=== PATIENT | female | born 1955 | race Caucasian/White ===

== ENCOUNTER 2017-01-19 19:03 | Inpatient (IN) | payer OTHER ==
[~2017-01-19] VITALS: Ht 172.7 cm; Wt 89.5 kg
[~2017-01-19 19:03] MED LIST: EFF75; GLU500 PO; NEU300; PROTONIX40 MG PO; REM15; TRA50; TRE400; ZES10 PO; ZOC20; ZOL100
[2017-01-19 20:30] LABS: BASOPHIL % 0.2 % (0-2); PLATELET COUNT 253 x10^3mcL (130-400); RED CELL DISTRIBUTION WIDTH 13.9 % (11.5-14.5)
[2017-01-19 20:42] LABS: ALKALINE PHOSPHATASE 149 U/L (46-116); ALT/SGPT 13 U/L (14-59); AST/SGOT 8 U/L (15-37); BILIRUBIN TOTAL 0.6 mg/dL (0.20-1.00); CALCIUM 8.9 mg/dL (8.5-10.1); CARBON DIOXIDE 22.1 mmol/L (21-32); CHLORIDE SERUM 94 mmol/L (98-107); CHOLESTEROL 161 mg/dL (<200); CREATININE SERUM 0.9 mg/dL (0.6-1.0); GFR1 > 60 mL/min; POTASSIUM SERUM 4.3 mmol/L (3.5-5.1); SODIUM SERUM 132 mmol/L (136-145); TOTAL PROTEIN, SERUM 7.2 g/dL (6.4-8.2)
[2017-01-19 20:44] LABS: ALBUMIN 2.8 g/dL (3.4-5.0)
[2017-01-19 20:45] LABS: GLUCOSE SERUM 464 mg/dL (74-106)
[2017-01-19] MEDS ORDERED: PROTONIX20 MG PO (21:20)
[2017-01-19] MEDS ORDERED: LOSARTAN POTASS50 M1 PO (21:20)
[2017-01-19] MEDS ORDERED: MIRTAZAPINE45 M1 PO (21:21)
[2017-01-19] MEDS ORDERED: SIMVASTATIN20 M1 PO (21:21)
[2017-01-19] MEDS ORDERED: SYNTHROID0.2 MG PO (21:21)
[2017-01-19] MEDS ORDERED: CLONAZEPAM1 MG PO (21:21)
[2017-01-19] MEDS ORDERED: LAMICTAL150 MG PO (21:22)
[2017-01-19] MEDS ORDERED: ZOLOFT100 MG PO (21:22)
[2017-01-19] MEDS ORDERED: EFFEXOR-XR150 MG PO (21:23)
[2017-01-19] MEDS ORDERED: TRAZODONE150 M1 PO (21:23)
[2017-01-19 22:27] LABS: CHOLESTEROL/HDL RATIO 4.2; MAGNESIUM 2.1 mg/dL (1.8-2.4); PHOSPHOROUS 3.9 mg/dL (2.5-4.9)
[2017-01-19 22:35] LABS: FREE T4 2.18 ng/dL (0.76-1.46); FREE THYROXINE INDEX 5.6 ug/dL (1.4-4.5)
[2017-01-19 22:38] VITALS: BP 160/68
[2017-01-19 22:38] LABS: T3 TOTAL 0.73 ng/mL
[2017-01-20 04:52] VITALS: BP 133/64
[2017-01-20 06:13] LABS: BASOPHIL % 0.2 % (0-2); PLATELET COUNT 229 x10^3mcL (130-400); RED CELL DISTRIBUTION WIDTH 14.2 % (11.5-14.5)
[2017-01-20 06:27] LABS: CALCIUM 8.7 mg/dL (8.5-10.1); CARBON DIOXIDE 22.7 mmol/L (21-32); PHOSPHOROUS 4.3 mg/dL (2.5-4.9); POTASSIUM SERUM 3.9 mmol/L (3.5-5.1)
[2017-01-20 07:23] LABS: UA SPECIFIC GRAVITY 1.015 (1.005-1.035); microscopic required? YES; urine erythrocyte 2+ (NEGATIVE)
[2017-01-20 07:41] LABS: AMPHETAMINE QUAL UR NONE DETECTED (NEG <=1000)
[2017-01-20 09:12] VITALS: BP 145/63
[2017-01-20 14:18] VITALS: BP 167/70
[2017-01-20 16:52] VITALS: BP 132/65
[2017-01-20 20:41] VITALS: BP 141/54
[2017-01-21 05:26] VITALS: BP 137/50
[2017-01-21 06:42] LABS: CALCIUM 8.5 mg/dL (8.5-10.1); CARBON DIOXIDE 25.3 mmol/L (21-32); CHLORIDE SERUM 109 mmol/L (98-107); CREATININE SERUM 0.7 mg/dL (0.6-1.0); GFR1 > 60 mL/min; GLUCOSE SERUM 241 mg/dL (74-106); POTASSIUM SERUM 3.9 mmol/L (3.5-5.1); SODIUM SERUM 143 mmol/L (136-145)
[2017-01-21 13:21] VITALS: BP 150/53
[2017-01-21 16:42] VITALS: BP 157/61
[2017-01-21 21:15] VITALS: BP 143/61
[2017-01-22 05:37] VITALS: BP 143/58
[2017-01-22 10:24] VITALS: BP 153/58
[2017-01-22 14:24] VITALS: BP 166/71
[2017-01-22 17:18] VITALS: BP 148/76
[2017-01-22 21:47] VITALS: BP 150/62
[2017-01-23 05:48] VITALS: BP 121/49
[2017-01-23 06:39] LABS: BASOPHIL % 0.1 % (0-2); CALCIUM 8.5 mg/dL (8.5-10.1); CARBON DIOXIDE 25.6 mmol/L (21-32); CHLORIDE SERUM 107 mmol/L (98-107); CREATININE SERUM 0.7 mg/dL (0.6-1.0); GFR1 > 60 mL/min; GLUCOSE SERUM 298 mg/dL (74-106); MAGNESIUM 1.6 mg/dL (1.8-2.4); PHOSPHOROUS 5.1 mg/dL (2.5-4.9); PLATELET COUNT 225 x10^3mcL (130-400); POTASSIUM SERUM 4.1 mmol/L (3.5-5.1); RED CELL DISTRIBUTION WIDTH 14.4 % (11.5-14.5); SODIUM SERUM 141 mmol/L (136-145)
[2017-01-23 09:39] VITALS: BP 130/61
[2017-01-23] MEDS ORDERED: GLIPIZIDE5 M2 PO (11:18)
[2017-01-23 13:03] VITALS: BP 130/61
== END 2017-01-23 13:52 | disposition home health service (06) | DRG 73 ==
LOC: ED 19:03 → DU 21:07 → EDBEDREQ 21:10 → MU 22:23 → DU 22:37
PROVIDERS: Family Medicine; Specialist; ADMIT Student in an Organized Health Care Education/Training Program
DX: G90.9 Disorder of the autonomic nervous system, unspecified (principal); E43 Unspecified severe protein-calorie malnutrition; N17.0 Acute kidney failure with tubular necrosis; N39.0 Urinary tract infection, site not specified; M47.12 Other spondylosis with myelopathy, cervical region; E87.1 Hypo-osmolality and hyponatremia; D68.69 Other thrombophilia; E11.65 Type 2 diabetes mellitus with hyperglycemia; I16.0 Hypertensive urgency; N31.8 Other neuromuscular dysfunction of bladder; E03.9 Hypothyroidism, unspecified; R31.9 Hematuria, unspecified; B37.3 Candidiasis of vulva and vagina; E78.1 Pure hyperglyceridemia; E66.9 Obesity, unspecified; Z99.3 Dependence on wheelchair; Z68.30 Body mass index [BMI] 30.0-30.9, adult
CPT/HCPCS: 82962; 83880; 84439; 87046; 87046-59; 90658; 97110-GP; 97116-GP; 97530-GP; A9577; G0480; J0696; J1815; J7030; Q0092

== ENCOUNTER 2017-07-03 11:48 | Emergency (ER) | payer OTHER ==
[~2017-07-03] VITALS: Ht 170.2 cm; Wt 106.1 kg
[~2017-07-03 11:48] MED LIST changes: +CLONAZEPAM1 MG PO; +EFFEXOR-XR150 MG PO; +GLIPIZIDE5 M2 PO; +LAMICTAL150 MG PO; +LOSARTAN POTASS50 M1 PO; +MIRTAZAPINE45 M1 PO; +PROTONIX20 MG PO; +SIMVASTATIN20 M1 PO; +SYNTHROID0.2 MG PO; +TRAZODONE150 M1 PO; +ZOLOFT100 MG PO
[2017-07-03 14:12] LABS: CALCIUM 8.6 mg/dL (8.5-10.1); CARBON DIOXIDE 27.9 mmol/L (21-32); POTASSIUM SERUM 4.7 mmol/L (3.5-5.1)
[2017-07-03 17:24] VITALS: BP 103/59
== END 2017-07-03 17:22 | disposition home or self-care (01) ==
LOC: ED 11:48
PROVIDERS: Emergency Medicine
DX: S82.831A Other fracture of upper and lower end of right fibula, initial encounter for closed fracture (principal); E11.9 Type 2 diabetes mellitus without complications; M79.7 Fibromyalgia; E78.00 Pure hypercholesterolemia, unspecified; X58.XXXA Exposure to other specified factors, initial encounter; Y93.89 Activity, other specified; Y92.89 Other specified places as the place of occurrence of the external cause; Y99.8 Other external cause status
CPT/HCPCS: J3010; J3490; J7030; Q0092; Q9967

== ENCOUNTER 2020-03-18 14:10 | Inpatient (IN) | payer OTHER, SELFPAY ==
[~2020-03-18] VITALS: Ht 171.4 cm; Wt 128.0 kg
[2020-03-18 14:22] VITALS: Ht 171.4 cm; Wt 128.0 kg
[2020-03-18 16:36] LABS: BASOPHIL % 0.1 % (0.2-1.3); PLATELET COUNT 265 x10^3mcL (179-408)
[2020-03-18 16:44] LABS: T3 TOTAL 0.52 ng/mL
[2020-03-18 17:36] LABS: BILIRUBIN TOTAL 0.2 mg/dL (0.20-1.00); C REACTIVE PROTEIN 0.5 mg/dL (<=0.9); CALCIUM 8.3 mg/dL (8.5-10.1); CARBON DIOXIDE 27.7 mmol/L (21-32); CREATININE SERUM 1.9 mg/dL (0.6-1.0)
[2020-03-18 17:43] LABS: ALBUMIN 2.6 g/dL (3.4-5.0)
[2020-03-18 17:45] LABS: POTASSIUM SERUM 5.6 mmol/L (3.5-5.1)
[2020-03-18 18:11] LABS: ERYTHROCYTE SED RATE 44 mm/hr (0-30)
[2020-03-18 18:12] LABS: CK-MB 3.5 ng/mL (0-3.6)
[2020-03-18 18:24] LABS: FREE T4 0.79 ng/dL (0.76-1.46)
--- NOTE | 2020-03-18 23:45 | NUR ---
ASSISTED PT TO LEFT SIDE FOR COMFORT. IV CA REMAINS INFUSING WITHOUT RESITANCE ON PUMP AT 100 MLS/HOUR.
--- NOTE | 2020-03-19 07:14 | NUR ---
REPORT GIVEN TO GISELE LIPSCOMB AND CARE GIVEN
--- NOTE | 2020-03-19 07:45 | NUR ---
IV TO LAC PULLED OUT AND CATHETER KINKED. REMOVED IV AND INSERTED NEW IV TO RIGHT HAND AND FLUSHES FREELY WITH 10CC SALINE. WILL CONTINUE TO MONITOR.
--- NOTE | 2020-03-19 07:45 | NUR ---
RECIEVED PT FROM NIGHT NURSE. PT IS LAYING DOWN IN BED WITH HOB UP RESTING. PT EASILY AROUSABLE. PT IS AOX4 AT THIS TIME. PT STATES ARRIVED TO ED FOR WORSENING SOB, PT SEEMS TO BE SOB AT THIS TIME AND IS WORSE WITH EXCERTION AND SPEAKING. PT ON 4L NC AND IS SATTING 96% AT THIS TIME. PT ABLE TO FOLLOW COMMANDS. PT HAS SCATTERED SCABS. PT DENIES ANY PAIN AT THIS TIME. PROVIDED PT WITH BREAKFAST TRAY. RESPIRATIONS SHALLOW. LUNG SOUNDS DIMINISHED. SIDE RAILS UPX2. WILL CONTINUE TO MONITOR.
--- NOTE | 2020-03-19 08:15 | NUR ---
PROVIDED PT WITH BREAKFAST TRAY. ASSISTED WITH TRAY SET UP. PT ABLE TO EAT WITHOUT ASSISTANCE. WILL CONTINUE TO DREAD,.
[2020-03-19] MEDS ORDERED: TRESIBA100 UNIT/1 SQ (09:16)
--- NOTE | 2020-03-19 09:17 | NUR ---
PT STATES URINATED IN DIAPER. CHANGED UP PT AND CHANGED DIAPER, PT BROUGHT PERSONAL DIAPERS. MADE PT COMFORTABLE IN BED. WILL CONTINUE TO MONITOPR.
--- NOTE | 2020-03-19 10:25 | NUR ---
PT URINATED IN DIAPER. CHANGED DIAPER, AND CLEANED UP PT, CHANGED SHEET. WILL CONTINUE TO MONITOR.
--- NOTE | 2020-03-19 10:35 | NUR ---
PT SIGNED CONSENT FOR THORACENTESIS. DR. MISHRA AND XRAY AT BEDSIDE.
--- NOTE | 2020-03-19 10:47 | NUR ---
TIME OUT PERFORMED FOR RIGHT SIDED THORACENTESIS.
--- NOTE | 2020-03-19 10:48 | NUR ---
PRE THORACENTESIS VITALS 167/64, MAP 98, HR: 92, O2: 99%, RR: 23. PT LOOKS TO BE IN NO ACUTE DISTRESS. PT STATES HAVING SOB AT THIS TIME. PT SEEMS TO HAVE SOB WITH TALKING. PT IN TRIPOD POSITION FOR PROCEDURE.
--- NOTE | 2020-03-19 10:50 | NUR ---
THROACENTESIS BEGUN. DR. MISHRA PERFORMING NEEDLE INSERTION. PT TOLERATING WELL. BP: 177/83, MAP: 114, HR: 90, O2: 99% ON 4L NC, RR: 17.
--- NOTE | 2020-03-19 10:59 | NUR ---
RIGHT SIDED THORACENTESIS COMPLETE, 1.6L OUT. NEEDLE REMOVED. PT STATES FEELING EASIER TO BREATH, PT ABLE TO TALK BETTER, PT LOOKS TO BE IN NO ACUTE DISTRESS AT THIS TIME. PT STATES SHARP PAIN IN RIGHT CHEST/ UPPER BACK WITH INSPIRATION. SIDE RAIL UP X2. MADE PT COMFORTABLE IN BED. WILL CONTINUE TO MONITOR.
[2020-03-19 11:07] LABS: BILIRUBIN TOTAL 0.2 mg/dL (0.20-1.00); CALCIUM 8.4 mg/dL (8.5-10.1); CARBON DIOXIDE 31.5 mmol/L (21-32); CREATININE SERUM 1.6 mg/dL (0.6-1.0); MAGNESIUM 2.4 mg/dL (1.8-2.4); POTASSIUM SERUM 4.8 mmol/L (3.5-5.1)
--- NOTE | 2020-03-19 11:10 | NUR ---
XRAY AT BEDSIDE.
[2020-03-19 11:14] LABS: ALBUMIN 2.4 g/dL (3.4-5.0); TOTAL PROTEIN, SERUM 5.8 g/dL (6.4-8.2)
[2020-03-19 11:15] LABS: BASOPHIL % 0.2 % (0.2-1.3); PLATELET COUNT 284 x10^3mcL (179-408)
[2020-03-19 11:21] LABS: RED CELL DISTRIBUTION WIDTH 17.1 % (12.3-17.7)
--- NOTE | 2020-03-19 12:13 | NUR ---
SPOKE WITH DR. CAIN ABOUT THORACENTESIS OF 1.6L OUT, PER DR. JOE, SEND FOR CELL COUNT, GRAMISE STAIN AND CULTURE AND FLUID TO PROTEIN AND LD EDGE AND FLUID GLUCOSE. INFORMED OF HOME MEDS AND HISTORY OF DIABETES, PER DR. JOE, WILL START ON SLIDING SCALE. WILL CARRY OUT ORDERED
--- NOTE | 2020-03-19 12:50 | NUR ---
PROVIDED PT WITH LUNCH TRAY. PT RESTING AT THIS TIME. ASSISTED WITH TRAY SET UP. WILL CONTINUE TO MONITOR.
--- NOTE | 2020-03-19 16:00 | NUR ---
PT STATES UNAWARE OF WHEN SHE NEEDS TO URINATE. EDUCATED PT ABOUT STRAIGHT CATH, PT AGREEABLE. PERFORMED STRAIGHT CATH, PT TOLERATED WELL, COLLECTED URINE AND SENT TO THE LAB. CHANGED DIAPER AND CLEANED UP PT. MADE PT COMFORTABLE IN BED. SIDE RAILS UP X2. CALL LIGHT WITHIN REACH. WILL CONTINUE TO MONITOR.
[2020-03-19 16:20] LABS: UA SPECIFIC GRAVITY >=1.030 (1.005-1.035); microscopic required? YES; urine erythrocyte 2+ (NEGATIVE)
--- NOTE | 2020-03-19 16:28 | NUR ---
ULTRASOUND AT BEDSIDE
--- NOTE | 2020-03-19 16:43 | NUR ---
CALLED AND GAVE REPORT TO DEISI FAGAN. ULTRASOUND IN PROGRESS AT THIS TIME. WHEN ULTRASOUND COMPLETE, WILL BRING PT TO TELE.
--- NOTE | 2020-03-19 17:17 | NUR ---
RECEIVED PT FROM ED VIA SASHA, CAME IN DUE TO INCREASING SOB. AAOX4. DENIES HEADACHE/DIZZINESS. ABLE TO FOLLOW COMMANDS. SOB NOTED ON EXERTION, LUNG SOUNDS DIMINISHED ON AUSCULTATION, O2 SAT=95% ON 4LPM/NC. NO COUGH NOTED. DENIES ABDOMINAL DISCOMFORT. ABDOMEN IS SOFT AND ROUNDED. LAST BM 03/18/20, SOFT. URINE INCONTINENT. W/ RIGHT GROIN ERYTHEMA, BUE AND BLE SCABS, AND BLANCHABLE ERYTHEMA ON SACRAL-COCCYGEAL AREA, KRANTHI. W/ BUE TRACE EDEMA ON BLE +2 EDEMA. WEAK PEDAL PULSES. URINE INCONTINENT. IV SITE ON THE LEFT HAND GAUGE 20 IS PATENT AND INTACT. SIDE RAILS UPX2. CALL LIGHT ON REACH. HOB ELEVATED AT 45 DEG. RZ=[id number], REPEAT VX=[phone]/79. ENDORSED TO PRIMARY NURSE LILLY FOR CONTINUITY OF CARE
--- NOTE | 2020-03-19 17:30 | NUR ---
PT VS ASSESSED. BP: 170/79. SECOND CHECK 176/79. PT ASYMPTOMATIC. DR. DEAN PAGED FOR HTN MEDS. AWAITING CALL BACK.
[2020-03-19 17:45] VITALS: BP 176/79
--- NOTE | 2020-03-19 18:51 | NUR ---
BP: 194/83 (139). PT ASYMPTOMATIC. PRN HYRDRALIZINE PO ADMINISTERED. BED IN LOWEST POSITION AND CALL LIGHT WITHIN REACH. WILL ENDORSE TO ONCOMING NURSE.
[2020-03-19 19:38] LABS: SOURCE FLUID THORACENTESIS
--- NOTE | 2020-03-19 20:29 | NUR ---
RECEIVED PT IN BED NO RESP DISTRESS NOTED , LUNG SOUNDS DM ON 4L N/C SAT 97% . TELE 58 SHOWS NSR , BILAT LOWER EXTR NOTED WITH 2+ EDEMA , SL TO LH PATENT FLUSHING WELL , CALL LIGHT WITHIN PT'S REACH WILL CON'T TO MONITOR AND ASSIST PT WITH CARE .
[2020-03-19 21:38] VITALS: BP 151/62
[2020-03-20 00:30] LABS: APPEARANCE FLUID CLEAR; COLOR FLUID PALE YELLOW; LYMPHOCYTE FLUID 70 %; MONOCYTE FLUID 10 %; RBC FLUID 39 /cumm; SOURCE FLUID THORACENTESIS; WBC FLUID 24 /cumm
[2020-03-20 06:24] VITALS: BP 152/65
--- NOTE | 2020-03-20 06:56 | NUR ---
NO CHANGES OF CONDITION NOTED, SCHEDULE MEDS GIVEN NO REACTION NOTED, RAMÍREZ TO GRAVITY DRAINING WELL , TELE NSR .
[2020-03-20 07:16] LABS: BASOPHIL % 0.2 % (0.2-1.3); PLATELET COUNT 272 x10^3mcL (179-408)
--- NOTE | 2020-03-20 07:30 | NUR ---
RECEIVED PATIENT IN BED AWAKE ALERT AND ORIENTED. TELE 58 NSR. RESP EVEN AND UNLABORED, LUNGS DIMINIDHED, ON O2 AT 4L VIA N/C, SAT 96%. PATIENT HAS A PRODUCTIVE COUGH. BANDAID ON RT SIDE OF BACK FROM THORACENTESIS YESTERDAY C/D/I. 1+ EDEMA NOTED BLE, TRACE EDEMA BUE. RAMÍREZ CATH DRAINING YELLOR URINE. WILL CONTINUE TO MONITOR.
[2020-03-20 07:37] LABS: RED CELL DISTRIBUTION WIDTH 17.3 % (12.3-17.7)
[2020-03-20 07:59] LABS: BILIRUBIN TOTAL 0.33 mg/dL (0.20-1.00); CALCIUM 8.7 mg/dL (8.5-10.1); MAGNESIUM 2.3 mg/dL (1.8-2.4); POTASSIUM SERUM 4.6 mmol/L (3.5-5.1)
[2020-03-20 08:05] LABS: ALBUMIN 2.1 g/dL (3.4-5.0); TOTAL PROTEIN, SERUM 5.5 g/dL (6.4-8.2)
[2020-03-20 08:15] VITALS: BP 152/67
[2020-03-20 08:35] LABS: CREATININE SERUM 1.4 mg/dL (0.6-1.0)
[2020-03-20 12:13] VITALS: BP 140/65
[2020-03-20 16:38] VITALS: BP 135/60
--- NOTE | 2020-03-20 17:27 | NUR ---
PATIENT'S PLAN OF CARE WAS DISCUSSED AND REVIEWED WITH BIOMETRIC FINGERPRINTING TECHNICIAN:TYLER HERNADEZ. I HAVE REVIEWED THE DATA COLLECTION BY BIOMETRIC FINGERPRINTING TECHNICIAN (NAME):TYLER HERNADEZ ENTERED ON (DATE/TIME):03/20/20 I CONCUR WITH THE DATA AND ANY EXCEPTIONS OR COMMENTS ARE LISTED BELOW:
--- NOTE | 2020-03-20 18:11 | NUR ---
PATIENT REMAINS IN BED SITTING UP, AWAKE AND ALERT. RAMÍREZ CATH DRAINING WELL. O2 REMAINS ON AT 4L VIA N/C. RESP REMAIN EVEN AND UNLABORED, LUNGS DIMINISHED. PRODUCTIVE COUGH STILL NOTED. PER PATIENT HER SCATTERED SCABS ON BUE AND BLE ARE FROM HER CAT. Alex HERNADEZ APPLIED TO ALEX AND GROIN AREA. DENIES ANY PAIN OR DISCOMFORT. WILL CONTINUE TO MONTIOR.
--- NOTE | 2020-03-20 20:05 | NUR ---
N BED NO RESP DISTRESS NOTED ON 4L N/C SAT 98% . TELE NSR , HL INTACT FLUSHING WELL , RAMÍREZ O GRAVITY DRAINING WELL CLEAR YELLOW URINE . TELE NSR . .
[2020-03-20 22:07] VITALS: BP 106/63
--- NOTE | 2020-03-21 05:01 | NUR ---
IN BED AWAKE NO RESP DISTRESS NOTED , HL INTACT , TELE NSR , RAMÍREZ TO GRAVITY DRAINING WELL .
--- NOTE | 2020-03-21 07:03 | NUR ---
RAMÍREZ TO GRAVITY DRAINING WELL , TELE NSR . HL PATENT . PT IN BED AWAKE NO DISTRESS.
[2020-03-21 08:46] VITALS: BP 130/61; BP 161/83
[2020-03-21 08:54] LABS: BILIRUBIN TOTAL 0.2 mg/dL (0.20-1.00); CALCIUM 8.1 mg/dL (8.5-10.1); CARBON DIOXIDE 30.5 mmol/L (21-32); CREATININE SERUM 1.6 mg/dL (0.6-1.0); MAGNESIUM 2.1 mg/dL (1.8-2.4); POTASSIUM SERUM 4.3 mmol/L (3.5-5.1)
[2020-03-21 08:55] LABS: ALBUMIN 1.8 g/dL (3.4-5.0); TOTAL PROTEIN, SERUM 4.9 g/dL (6.4-8.2)
--- NOTE | 2020-03-21 10:54 | NUR ---
PATIENT IS 65 YEAR OLD FEMALE THAT WAS ADMITTED TO [facility] FOR WORENING SOB FOR ONE WEEK. PATIENT HAD A LARGE PLEURAL EFFUSION THIS PROMPTED A US GUIDED THORACENTISIS 1.6L OUT 03/19. LABS THIS AM THEN PENDING DC ORDER AT THIS TIME. PATIENT ALERT AND ORIENTED X4 ABLE TO VERBALIZE NEEDS. TELE 58 NSR. GENERALIZED WEAKNESS-PT HERE TO EVALUATE PATIENT TODAY.
[2020-03-21 12:11] LABS: BASOPHIL % 0.6 % (0.2-1.3); PLATELET COUNT 240 x10^3mcL (179-408)
[2020-03-21 12:16] LABS: RED CELL DISTRIBUTION WIDTH 17.6 % (12.3-17.7)
[2020-03-21 16:17] VITALS: BP 149/59
--- NOTE | 2020-03-21 19:40 | NUR ---
RECEIVED REPORT FROM AM NURSE. PT IS A&OX4. PT IS ON TELE #58, NSR. PT HAS NON PITTING EDEMA IN BUE AND BLE. PT IS ON 4L O2 VIA NC, SPO2 07%. BREATHS ARE EVEN AND UNLABORED. PT HAS A RAMÍREZ CATHETER. PT IS IN NO ACUTE DISTRESS AT THE MOMENT. PT DENIES CHEST PAIN, DENIES N/V/D, DENIES SOB. PT DOES NOT HAVE C/O PAIN OR DISCOMFORT AT THE MOMENT. PT HAS AN IV IN HER LEFT HAND, IV IS CLEAN, DRY AND INTACT. NO SIGNS OF INFILTRATION OR INFECTION NOTED. CALL LIGHT IS WITHIN REACH. SIDE RAILS UP X2. WILL CONTINUE TO MONITOR.
[2020-03-21 21:08] VITALS: BP 153/80
--- NOTE | 2020-03-22 03:50 | NUR ---
PT IS RESTING WITH EYES CLOSED BUT IS EASILY AROUSABLE. PT IS NOT IN ACUTE DISTRESS AT THE MOMENT. CALL LIGHT IS WITHIN REACH. SIDE RAILS UP X2. WILL CONTINUE TO MONITOR.
--- NOTE | 2020-03-22 05:43 | NUR ---
PT IS RESTING IN BED. PT IS NOT IN ACUTE DISTRESS AT THIS TIME. PT DENIES SOB. BREATHS ARE EVEN AND UNLABORED. WILL ENDORSE CARE TO AM NURSE.
[2020-03-22 06:41] VITALS: BP 151/74
[2020-03-22 08:42] VITALS: BP 170/71
[2020-03-22 08:46] LABS: BILIRUBIN TOTAL 0.2 mg/dL (0.20-1.00); CALCIUM 8.4 mg/dL (8.5-10.1); CREATININE SERUM 1.5 mg/dL (0.6-1.0); MAGNESIUM 2.3 mg/dL (1.8-2.4); POTASSIUM SERUM 4.6 mmol/L (3.5-5.1)
[2020-03-22 08:48] LABS: ALBUMIN 1.8 g/dL (3.4-5.0); TOTAL PROTEIN, SERUM 5.2 g/dL (6.4-8.2)
[2020-03-22 09:17] LABS: BASOPHIL % 0.3 % (0.2-1.3); PLATELET COUNT 217 x10^3mcL (179-408)
[2020-03-22 09:21] LABS: RED CELL DISTRIBUTION WIDTH 16.8 % (12.3-17.7)
--- NOTE | 2020-03-22 11:08 | NUR ---
PATIENT IS 65 YEAR OLD FEMALE THAT WAS ADMITTED TO [facility] FOR WORENING SOB FOR ONE WEEK. PATIENT HAD A LARGE PLEURAL EFFUSION THIS PROMPTED A US GUIDED THORACENTISIS 1.6L OUT 03/19. PATIENT ALERT AND ORIENTED X4 ABLE TO VERBALIZE NEEDS. TELE 58 NSR. GENERALIZED WEAKNESS- PT TO SEE PATIENT TODAY. PATIENT ON KLONOPIN FOR ANXIETY PRN REQUESTING IT THIS AM, GIVEN ON MEDICATION ROUNDS, PATIENT VERBALIZING SHE WANTS TO LEAVE OR TALK TO THE DOCTOR. PENDING ROUNDS AT THIS TIME.
--- NOTE | 2020-03-22 15:25 | NUR ---
PATIENT VERY UPSET AND CRYING DUE TO HER NOT LEAVING TODAY, SHE WILL REQUIRE O2 AT HOME, RT EVALUATED AND WILL SET UP 02 3LNC AT HOME, O2 EVAL WAS 85% ON RA. ORDER FOR RAMÍREZ REMOVAL, WILL BE REMOVED PRIOR TO END OF SHIFT.
--- NOTE | 2020-03-22 16:31 | NUR ---
PATIENT HAVING A PANIC ATTACK AT SI TIME, AFTER EVAL FOR HOME O2, THINKING SHE STILL HAS FLUID, WHICH HAS BEEN REMOVED PREVIOUSLY, KLONOPIN WAS GIVEN AT 0800 PER HER REQUEST, NO MORE ANXIETY PRNS TO GIVE, PAGED DR PACHECO TO GET ANOTHER ORDER. PENDING CALL BACK AT THIS TIME.
--- NOTE | 2020-03-22 16:43 | NUR ---
CALLED DR PACHECO ONE TIME KLONOPIN 1MG NOW WILL BE GIVEN FOR PANIC ATTACK, HE IS AWARE OF HOME O2 REQUIREMENT.
--- NOTE | 2020-03-22 19:32 | NUR ---
Pt. received from day shift for continuity of care. Pt. is a/o x4, able to amke needs known, tele 58, SR, noted to have weak pedal pulssea, BUE trace edema, BLE +2. Pt. on 4L NC, breathing e/u at this time. Pt. had r thoracentesis 1.6 out on 03/19. Pt. madison removed, has voided since as per day shift. Pt. noted to get anxious during day shift, will ask for medication and cont. to monitor. Pt. noted to have scabs on BUE/BLE, erythema on R roun and sacral, will apply z guard as needed. PT IV access on LH 20g, patent and dressing CdI, otherwise, pt. moderately stable, will cont. to monitor.
[2020-03-22 21:47] VITALS: BP 161/60
[2020-03-23 06:35] VITALS: BP 154/55
--- NOTE | 2020-03-23 06:45 | NUR ---
Pt. noted to be resting throughout shift, no acute distress noted at this time. Pt. did have a little bit of anxiety, given PRN order to help calm pt. down as ordered. Pt. remained strable throughout shift. Pt. changed 3x incontinent, making urine today s/p madison removal. Otherwise, pt. stable, will cont. to monitor and endorse to next shift RN.
[2020-03-23 08:21] LABS: BASOPHIL % 0.2 % (0.2-1.3); PLATELET COUNT 280 x10^3mcL (179-408)
[2020-03-23 08:51] VITALS: BP 144/64
[2020-03-23 09:49] LABS: BILIRUBIN TOTAL 0.15 mg/dL (0.20-1.00); CALCIUM 8.5 mg/dL (8.5-10.1); CARBON DIOXIDE 33.4 mmol/L (21-32); CREATININE SERUM 1.6 mg/dL (0.6-1.0); MAGNESIUM 2.5 mg/dL (1.8-2.4); POTASSIUM SERUM 4.6 mmol/L (3.5-5.1)
[2020-03-23 09:57] LABS: TOTAL PROTEIN, SERUM 5.7 g/dL (6.4-8.2)
--- NOTE | 2020-03-23 10:43 | NUR ---
PATIENT IS 65 YEAR OLD FEMALE THAT WAS ADMITTED TO [facility] FOR WORENING SOB FOR ONE WEEK. PATIENT HAD A LARGE PLEURAL EFFUSION THIS PROMPTED A US GUIDED THORACENTISIS 1.6L OUT 03/19. PATIENT ALERT AND ORIENTED X4 ABLE TO VERBALIZE NEEDS. TELE 58 NSR. GENERALIZED WEAKNESS NOTED. RAMÍREZ DC YESTERDAY PER NOC SHIFT PATIENT IS VOIDING WELL. PATIENT IS PENDING O2 AT HOME AND CONCENTRATOR, ALSO CM PETE THIS AM PLACED ORDER FOR SS TO ARRANGE HOME HEALTH AND PT WHEN SHE DC. SO WE ARE PENDING THAT AT THIS TIME THEN PATIENT CAN GO. ANXIETY NOTED THIS AM NO MEDICATIONS REQUESTED PATIENT ON THE PHONE WITH HER .
[2020-03-23 12:36] VITALS: BP 150/72
[2020-03-23] MEDS ORDERED: LASIX40 MG PO (13:23)
[2020-03-23 14:06] VITALS: BP 150/72
--- NOTE | 2020-03-23 14:16 | NUR ---
PATIENT WILL DISCHARGE THIS LATE AFTERNOON WHEN HH IS ARRANGED FROM . PATIENT O2 IS AT HOME LAST STEP THEN PATIENT WILL DISCHARGE TODAY, AWARE.
--- NOTE | 2020-03-23 16:11 | NUR ---
PATIENT SIGNED PAPERWORK FOR DC: ARRANED PER PETE, PAPERWORK SIGNED, PATIENT WILL DC AROUND [id number].
== END 2020-03-23 16:50 | disposition home or self-care (01) | DRG 189 ==
LOC: ED 14:10 → DU 18:54
PROVIDERS: Hospitalist; Internal Medicine Pulmonary Disease; Specialist; ADMIT Internal Medicine; ATTEND Internal Medicine
PROC: 0W993ZZ Drainage of Right Pleural Cavity, Percutaneous Approach (ICD-10-PCS; principal; 2020-03-19)
DX: J96.01 Acute respiratory failure with hypoxia (principal); I13.0 Hypertensive heart and chronic kidney disease with heart failure and stage 1 through stage 4 chronic kidney disease, or unspecified chronic kidney disease; N17.9 Acute kidney failure, unspecified; J91.8 Pleural effusion in other conditions classified elsewhere; E87.0 Hyperosmolality and hypernatremia; Z68.41 Body mass index [BMI] 40.0-44.9, adult; E78.00 Pure hypercholesterolemia, unspecified; M79.7 Fibromyalgia; E03.9 Hypothyroidism, unspecified; K21.9 Gastro-esophageal reflux disease without esophagitis; Z90.710 Acquired absence of both cervix and uterus; Z98.51 Tubal ligation status; Z20.822 Contact with and (suspected) exposure to COVID-19; E87.5 Hyperkalemia; E11.22 Type 2 diabetes mellitus with diabetic chronic kidney disease; N18.9 Chronic kidney disease, unspecified; Z87.891 Personal history of nicotine dependence; E11.65 Type 2 diabetes mellitus with hyperglycemia; E66.01 Morbid (severe) obesity due to excess calories; Z71.3 Dietary counseling and surveillance; F31.9 Bipolar disorder, unspecified; G89.4 Chronic pain syndrome; I50.9 Heart failure, unspecified; R53.81 Other malaise
CPT/HCPCS: 32555; 36600; 82962; 83880; 84439; 88344; 97110-GP; 97116-GP; C1729; G0378; J0456; J0696; J1644; J1815; J1940; J3490; J7050; U0003

== ENCOUNTER 2020-04-17 13:56 | Inpatient (IN) | payer OTHER ==
[~2020-04-17] VITALS: Ht 171.4 cm; Wt 123.4 kg
[~2020-04-17 13:56] MED LIST changes: +LASIX40 MG PO; +TRESIBA100 UNIT/1 SQ
[2020-04-17 14:52] VITALS: Ht 171.4 cm; Wt 123.4 kg
--- NOTE | 2020-04-17 15:41 | NUR ---
PT BIBA FROM HOME, C/O GENERALIZED WEAKNESS, SOB WITH MINIMAL EXERTION, RUQ PRESSURE 3/10, SWELLING NOTED ON BILATERAL LOWER EXTREMITIES, INCONTINENT TO URINE, URINARY RETENTION, SKIN TEARS AND SCRATCHES NOTED ON UPPER AND LOWER BILATERAL EXTREMITIES, PT STATES, "I HAVE A CAT." PT STATED THAT SHE HAS HAD ABDOMINAL PAIN X 3 DAYS BUT TODAY IT WAS MUCH WORSE AND THAT IS WHY SHE CAME IN, UPON ARRIVAL, PT TRANSFERRED TO BED 14 FROM [facility] WITH NO INCIDENT, PT NOTED TO BE IN ACUTE RESPIRATORY DISTRESS, 02 SAT ON RA WAS 87%, PLACED ON 4 L/MIN, OXYGEN INCREASED TO 97%, ANXIOUS, INSTRUCTED PT TO TAKE DEEP BREATHS IN AND OUT WHICH SEEMED TO HAVE HELPED, PT THEN CALMED, GOWNED, IV ESTABLISHED, BLODD DRAWN, PLACED ON FULL CM, EKG OBTAINED, PT STATED THE SHE IS USUALLY SOB, DOES NOT USE OXYGEN AT HOME, SHE WAS ADMITTED 3 WEEKS AGO FOR SOB, DENIES ANY SICK AT HOME. SAFETY PRECAUTIONS IN PLACE, CALL LIGHT WITHIN REACH, WILL MONITOR.
[2020-04-17 16:19] LABS: BASOPHIL % 0.7 % (0.2-1.3); PLATELET COUNT 302 x10^3mcL (179-408)
[2020-04-17 16:20] LABS: RED CELL DISTRIBUTION WIDTH 16.8 % (12.3-17.7)
[2020-04-17 16:35] LABS: CALCIUM 7.9 mg/dL (8.5-10.1); CARBON DIOXIDE 31.2 mmol/L (21-32); CREATININE SERUM 1.9 mg/dL (0.6-1.0); POTASSIUM SERUM 5.4 mmol/L (3.5-5.1)
[2020-04-17 16:40] LABS: BILIRUBIN TOTAL 0.1 mg/dL (0.20-1.00); TOTAL PROTEIN, SERUM 6.3 g/dL (6.4-8.2)
[2020-04-17 16:41] LABS: ALBUMIN 2.8 g/dL (3.4-5.0)
--- NOTE | 2020-04-17 19:17 | NUR ---
REPORT RECEIVED FROM MARTINE LIPSCOMB TO ASSUME CARE OF PT AT THIS TIME
--- NOTE | 2020-04-17 19:24 | NUR ---
REPORT GIVEN TO TROY LIPSCOMB TO RESUME CARE OF PT
--- NOTE | 2020-04-17 19:39 | NUR ---
PT IN [place] RESTING, ON PHONE WITH FAMILY, NAD NOTED, RESP E/U AAOX4. PT DOES NOT COMPLAIN OF ANYTHING AT THIS TIME. PT IN [place] AT LOWEST POSITION, AND SIDE RAILSX2 FOR SAFETY. PT EXPRESSED SADNESS REGARDING HER CONDITION AND MEDICAL STATUS--PROVIDED COMFORT AND THERAPEUTIC COMMUNICATION WITH PT AND PT EXPRESSED UNDERSTANDING AND ASSURANCE.
--- NOTE | 2020-04-17 20:25 | NUR ---
PT IN [facility], IN MILD DISTRESS--EDUCATED PT TO TAKE DEEP BREATHS FOR COMFORT, AND PT EXPRESSED UNDERSTANDING. PT WAS INFORMED THAT I WILL ASSESS HER BOTTOM FOR SKIN TEARS/ABRASIONS/PRESSURE ULCERS. PT DENIES HAVING ANY SKIN BREAKDOWN AND REFUSES SKIN ASSESSMENT.
--- NOTE | 2020-04-17 20:40 | NUR ---
RECEIVED PT FROM ED VIA [facility], CAME IN DUE TO SOB. AAOX4. DENIES HEADACHE/DIZZINESS. SOB NOTED ON MINIMAL EXERTION, ON 4LPM/NC, O2 SAT=95%. RR=26. LUNG SOUNDS DIMINISHED ON AUSCULTATION. DENIES CHEST PAIN/PRESSURE, SINUS TACHYCARDIA ON THE MONITOR. W/ +1 BUE EDEMA AND +3 BLE EDEMA. WEAK PEDAL PULSES. MODERATE RADIAL PULSES. URINE INCONTINENT. W/ CHINESE 16 RAMÍREZ CATHETER DRAINING W/ YELLOW COLORED URINE. ABDOMEN IS SOFT AND ROUNDED. W/ MULTIPLE SCABS ON BUE AND BLE. W/ ERYTHEMA ON THE ABDOMINAL FOLDS, INTERDRY APPLIED. IV SITE PATENT AND INTACT. SIDE RAILS UPX2. CALL LIGHT ON REACH. HOB ELEVATED AT 45 DEG. PRIMARY NURSE PETER AT BEDSIDE FOR CONTINUITY OF CARE.
[2020-04-17 21:08] VITALS: BP 131/107
--- NOTE | 2020-04-17 21:18 | NUR ---
PT REFUSED SKIN ASSESSMENT ON THE BACK
--- NOTE | 2020-04-18 00:46 | NUR ---
PT SLEEPING IN BED, O2 AT 4L NC, O2 SAT 95%, NO SOB OR DISTRESS NOTED,BED ALARM ON, RESPIRATIONS EVEN AND UNLABORED, CALL LIGHT WITHIN REACH, WILL CONTINUE TO MONITOR.
[2020-04-18 05:28] VITALS: BP 144/87
--- NOTE | 2020-04-18 06:21 | NUR ---
PT AWAKE IN BED, DENIES PAIN, NO SOB, RESPIRATIONS EVEN AND UNLABORED, ALERT AND ABLE TO VERBALIZE NEEDS, IN NO ACUTE DISTRESS, CALL LIGHT WITHIN REACH. WILL ENDORSE TO ONCOMING SHIFT FOR CONTINUATION OF CARE.
[2020-04-18 07:06] LABS: BASOPHIL % 0.4 % (0.2-1.3); PLATELET COUNT 273 x10^3mcL (179-408)
--- NOTE | 2020-04-18 07:30 | NUR ---
RECIEVED PATIENT FROM [facility] NURSE. PATIENT IS CURRENTLY AWAKE ALERT AND ORIENTED X 4. PATIENT IS ON 4 LITER NASAL CANNULA. PATIENT STATES THAT SHE IS ON 4 LITER NASAL CANNULA AT HOME ALSO. PATIENT DOES NOT REPORT ANY CHEST PAIN AT THIS TIME. PATIENT ON TELEMETRY MONITORING. 2+ PITTING EDEMA TO BLE, PATIENT REPORTS EDEMA TO BLE IMPROVING. IV SITE TO THE RAC [address] CURRENTLY SALINE LOCKED. SAFETY PRECAUTIONS IN PLACE. CALL LIGHT WITHIN REACH. WILL CONTINUE TO PROVIDE CARE FOR PATIENT.
[2020-04-18 07:38] LABS: CALCIUM 8.8 mg/dL (8.5-10.1); CARBON DIOXIDE 29.8 mmol/L (21-32); CREATININE SERUM 1.7 mg/dL (0.6-1.0); MAGNESIUM 2.8 mg/dL (1.8-2.4); POTASSIUM SERUM 4.9 mmol/L (3.5-5.1)
[2020-04-18 07:56] LABS: RED CELL DISTRIBUTION WIDTH 16.6 % (12.3-17.7)
--- NOTE | 2020-04-18 08:05 | NUR ---
PATIENT HAS SINUS TACHYCARDIA AT 136/MINUTE. PAGED. DR. LO RETURNED PAGE AND ORDERED FOR PATIENT TO BE PLACED ON METROPROLOL 50 MG PO BID.
[2020-04-18 08:52] VITALS: BP 141/75
--- NOTE | 2020-04-18 10:03 | NUR ---
PATIENT STARTED ON METROPROLOL 50 MG BID. BLOOD PRESSURES AND HEART RATE BEING CLOSELY MONITORED.
--- NOTE | 2020-04-18 10:45 | NUR ---
PER DR. LO, WE ARE TO MONITOR PATIENT'S HEART RATE NOW THAT MEDICATION ADJUSTMENTS HAVE BEEN MADE.
--- NOTE | 2020-04-18 11:03 | NUR ---
MONITORING HEART RATE WHICH CONTINUES TO FLUCTUATE BETWEEN 100-126. NO REPORT OF CHEST PAIN AT THIS TIME.
[2020-04-18 12:22] VITALS: BP 160/97
[2020-04-18 16:32] VITALS: BP 96/48
--- NOTE | 2020-04-18 17:17 | NUR ---
DR. LO PAGED TO INFORM HIM OF PATIENT'S CHANGE IN BLOOD PRESSURE. CURRENTLY AWAITING RETURN PHONE CALL.
--- NOTE | 2020-04-18 17:21 | NUR ---
SPOKE WITH DR. LO AND INFORMED HIM OF PATIENT'S BLOOD PRESSURE. PER DR. LO JUST MONITOR THE PATIENT FOR NOW. NO FURTHER ORDERS AT THIS TIME.
[2020-04-18 18:00] VITALS: BP 99/68
--- NOTE | 2020-04-18 18:07 | NUR ---
PATIENT CURRENTLY AWAKE ALERT AND ORIENTED X 4. BLOOD PRESSURES TRENDING LOW. DR. LO MADE AWARE OF THIS FACT. PER DOCTOR WALLY, CONTINUE TO MONITOR PATIENT, NO FURTHER ORDERS AT THIS TIME. PATIENT HAS LAC 20 GUAGE IV INTACT AND CURRENTLY SALINE LOCKED. PATIENT REMAINS ON 4 LITER OXYGEN, OXYGEN SATURATION AT 96%. PATIENT STATES SHE HAS SOB WITH MINIMAL EXERTION. HEART RATE REMAINS UNCONTROLLED- HEART RATE BETWEEN 100-130 WITH FREQUENT FLUCTUATIONS DESPITE THE FACT THAT THE PATIENT HAS BEEN STARTED ON METROPROLOL BID. PATIENT IS STABLE, NO REPORT OF CHEST PAIN AT THIS TIME. DR. LO NOTIFIED OF PATIENT'S BLOOD PRESSURE AND HEART RATE- NO FURTHER ORDERS AT THIS TIME.
--- NOTE | 2020-04-18 19:30 | NUR ---
RECEIVED PT FROM AM NURSE LILIANA, PT AA/O X4, ABLE TO MAKE NEEDS KNOWN, CLEAR SPEECH, DENIES HEADACHE/ DENIES DIZZINESS. TELE MONITOR #3, ST, HR 108 - 118 BPM AT THIS TIME. DENIES CHEST PAIN/ DENIES CHEST PRESSURE. PULSES PALPABLE, TRACE EDEMA TO BLE/ BUE. LUNG SOUNDS DIMINISHED, RESPIRATIONS E/U ON 4 LPM OF O2 VIA NC, PT ON THIS AMOUNT OF OXYGEN AT HOME, WILL NOT TITRATE. DENIES SOB. ACTIVE BS X 4 QUADS, ABD SOFT AND NON TENDER. DENIES N/V/D. F/C IN PLACE DRAINING YELLOW URINE, DRAINING TO GRAVITY. GENERALIZED WEAKNESS. REDNESS UNDER BREAST FOLDS, DENIES PAIN. IV TO LAC AND IV TO RAC PATENT, SL, BOTH FLUSHING WELL, NO ERYTHEMA/ NO INFILTRATION. BOTH IV SITES TAPED AND SECURED. ALL NEEDS MET. ALL CONCERNS ADDRESSED. CALL BUTTON WITHIN REACH, WILL CONTINUE TO MONITOR.
[2020-04-18 21:17] VITALS: BP 117/60
--- NOTE | 2020-04-19 02:08 | NUR ---
PT IN BED RESTING WITH EYES CLOSED, BUT EASILY AROUSABLE. HR 87 BPM. DENIES CHEST PAIN/ CHEST PRESSURE. RESPIRATIONS E/U ON 4 LPM OF O2 VIA NC. DENIES SOB. IV'S INTACT, NO ERYTHEMA AND NO INFILTRATION. NO ACUTE DISTRESS AT THIS TIME, CALL BUTTON WITHIN REACH, WILL CONTINUE TO MONITOR.
[2020-04-19 05:05] VITALS: BP 121/55
--- NOTE | 2020-04-19 05:46 | NUR ---
PT SLEPT IN INTERVALS THROUGHOUT THE NIGHT, BUT EASILY AROUSABLE. RESPIRATIONS E/U ON 4 LPM OF O2 VIA NC, SPO2 97%. DENIES SOB. DENIES CHEST PAIN. TELE MONITOR #3, HR 85-89 BPM AT THIS TIME. BP WNL, 121/55. NO ACUTE CHANGES OVERNIGHT. ALL NEEDS MET. CALL BUTTON WITHIN REACH, WILL ENDORSE CARE TO AM NURSE.
--- NOTE | 2020-04-19 06:09 | NUR ---
BLOOD SUGAR 79. PT ASYMPTOMATIC, DENIES HEADACHE/ DENIES SOB/ DENIES NAUSEA/ DENIES CHEST PAIN. OFFERED KAIA CRACKERS AND APPLE JUICE, PT ACCEPTED. NO OTHER CONCERNS AT THIS TIME. WILL ENDORSE CARE TO AM NURSE.
[2020-04-19 08:14] LABS: BASOPHIL % 0.1 % (0.2-1.3); PLATELET COUNT 257 x10^3mcL (179-408)
[2020-04-19 08:22] LABS: RED CELL DISTRIBUTION WIDTH 17.5 % (12.3-17.7)
[2020-04-19 08:38] VITALS: BP 122/63
[2020-04-19 11:05] LABS: CARBON DIOXIDE 31.8 mmol/L (21-32); CREATININE SERUM 2.3 mg/dL (0.6-1.0)
--- NOTE | 2020-04-19 11:18 | NUR ---
PATIENT SLEEPING IN BETWEEN CARE. NORCO GIVEN FOR BACK PAIN WITH GOOD RELIEF. REFUSED EFFEXOR THIS AM, PREFERS TO TAKE PM. NATY NAVARRO
[2020-04-19] MEDS ORDERED: LASIX40 MG PO (11:21)
[2020-04-19 13:25] VITALS: BP 122/63
--- NOTE | 2020-04-19 14:59 | NUR ---
PATIENT DISCHARGED HOME WITH VIA CAR. OXYGEN BROUGHT TO TRANSPORT PATIENT HOME, ALL BELONGINGS SENT WITH PATIENT. DISHARGE PAPERWORK DISCUSSED WITH PATIENT AND SHE VERBALIZED UNDERSTADING. RAMÍREZ AND IV'S REMOVED. SEBASTIAN NAVARRO RN
== END 2020-04-19 15:16 | disposition home or self-care (01) | DRG 292 ==
LOC: ED 13:56 → DU 17:48
PROVIDERS: Emergency Medicine; ADMIT Internal Medicine; ATTEND Internal Medicine
DX: I11.0 Hypertensive heart disease with heart failure (principal); Z68.41 Body mass index [BMI] 40.0-44.9, adult; Z20.822 Contact with and (suspected) exposure to COVID-19; I50.9 Heart failure, unspecified; Z87.891 Personal history of nicotine dependence; E11.9 Type 2 diabetes mellitus without complications; M79.7 Fibromyalgia; K21.9 Gastro-esophageal reflux disease without esophagitis; F32.9 Major depressive disorder, single episode, unspecified; Z90.710 Acquired absence of both cervix and uterus; Z98.51 Tubal ligation status; E66.9 Obesity, unspecified; Z71.3 Dietary counseling and surveillance; Z79.4 Long term (current) use of insulin; Z79.899 Other long term (current) drug therapy; H54.62 Unqualified visual loss, left eye, normal vision right eye; E78.5 Hyperlipidemia, unspecified; F41.9 Anxiety disorder, unspecified; E03.9 Hypothyroidism, unspecified
CPT/HCPCS: 82962; 83880; C9113; G0378; J1644; J1815; J1940

== ENCOUNTER 2020-04-28 18:20 | Inpatient (IN) | payer OTHER ==
[~2020-04-28] VITALS: Ht 170.2 cm; Wt 117.9 kg
[~2020-04-28 18:20] MED LIST changes: -LOSARTAN POTASS50 M1 PO
[2020-04-28 18:25] VITALS: Ht 170.2 cm; Wt 117.9 kg
--- NOTE | 2020-04-28 18:43 | NUR ---
PT BIB [facility] C/O SOB. PER MEDIC "PER PT GOT SOB AFTER PHYSICAL THERAPY AND SHE HAS A COUGH." PT PLACED IN GOWN AND ON FULL CM. PT NOTED TO HAVE SINUS TACHYCARDIA. DENIES CHEST PAIN. IV PLACED IN RAC 20G. PT AA/OX4. RESP EVEN AND UNLABORED. PT NOTED TO HAVE LABORED BREATHING AFTER COUGHING. PT STS " I WAS TESTED FOR COVID LAST WEEK AND IT WAS NEGITIVE." PT USES 2L O2 AT HOME. PT ON 4L O2 VIA NC. WILL CONT TO MONITOR.
--- NOTE | 2020-04-28 18:48 | NUR ---
PT LAYING ON RIGHT SIDE FOR COMFORT.
--- NOTE | 2020-04-28 19:11 | NUR ---
REPORT RECEIVED FROM SRAVANI LIPSCOMB TO ASSUME PT CARE.
--- NOTE | 2020-04-28 19:12 | NUR ---
LAB AND XRAY AT BEDSIDE
--- NOTE | 2020-04-28 19:12 | NUR ---
LAB AT BEDSIDE FOR LAB DRAW
--- NOTE | 2020-04-28 19:12 | NUR ---
REPORT GIVEN TO TABATHA LIPSCOMB TO ASSUME CARE OF PT
--- NOTE | 2020-04-28 19:15 | NUR ---
XRAY IN PROGRESS AT BEDSIDE
--- NOTE | 2020-04-28 19:19 | NUR ---
PT IS A&OX4, SPEAKING IN 3-4 WORD SENTENCES, FOLLOWING COMMANDS. PT IS ON FULL CM WITH SINUS TACHY NOTED, RESPS EQUAL AND DEEP, PT BECOMES SOB ON ACTIVITY AND WITH SPEAKING, ON 4L OF O2 VIA NC, +PMSC, SKIN IS DRY AND FLAKY, MULTIPLE ABRASIONS TO UBALDO UPPER THIGHS. PT DENIES CHEST PAIN AT THIS TIME. NO ACUTE DISTRESS NOTED AT THIS TIME, WILL CONT TO MONITOR.
[2020-04-28 19:30] LABS: BASOPHIL % 0.1 % (0.2-1.3); PLATELET COUNT 211 x10^3mcL (179-408)
[2020-04-28 19:31] LABS: RED CELL DISTRIBUTION WIDTH 17.6 % (12.3-17.7)
[2020-04-28 19:39] LABS: CALCIUM 8.5 mg/dL (8.5-10.1); CARBON DIOXIDE 33.5 mmol/L (21-32); CREATININE SERUM 1.9 mg/dL (0.6-1.0); POTASSIUM SERUM 5.4 mmol/L (3.5-5.1)
[2020-04-28 19:44] LABS: BILIRUBIN TOTAL 0.2 mg/dL (0.20-1.00); TOTAL PROTEIN, SERUM 6.3 g/dL (6.4-8.2)
[2020-04-28 19:56] LABS: C REACTIVE PROTEIN 0.5 mg/dL (<=0.9)
[2020-04-28] MEDS ORDERED: EFFEXOR-XR75 MG PO (20:03)
[2020-04-28] MEDS ORDERED: TRAZODONE150 M1 (20:04)
[2020-04-28] MEDS ORDERED: ASPIRIN CHILDRE81 MG (20:06)
[2020-04-28] MEDS ORDERED: DERMACINRX5000 UNIT (20:06)
[2020-04-28] MEDS ORDERED: ZESTRIL20 MG PO (20:07)
--- NOTE | 2020-04-28 20:24 | NUR ---
PT VOIDED IN ADULT DIAPER, ADULT DIAPER CHANGED AND PLACED ON CHUX. PT HAD INCREASED WOB DURING THIS TIME. O2 INCREASED TO 6L ON NC, AFTER PT WAS PLACED BACK ON 4L OF O2 VIA NC. NO ACUTE DISTRESS NOTED AT THIS TIME. WILL CONT TO MONITOR.
[2020-04-28 20:51] LABS: UA SPECIFIC GRAVITY >=1.030 (1.005-1.035); microscopic required? YES; urine erythrocyte TRACE (NEGATIVE)
--- NOTE | 2020-04-28 23:05 | NUR ---
PT VOIDED IN ADULT DIAPER. PT CHANGED INTO NEW CHUX AND ADULT DIAPER.
--- NOTE | 2020-04-29 01:13 | NUR ---
PT IS RESTING IN BED AT THIS TIME. PT IS EASILY AROUSABLE WITH EQUAL CHEST RISE AND FALL. NO ACUTE DISTRESS NOTED AT THIS TIME. WILL CONT TO MONITOR.
--- NOTE | 2020-04-29 01:26 | NUR ---
REPORT CALLED TO [facility] [id number] TO ASSUME PT CARE.
--- NOTE | 2020-04-29 01:50 | NUR ---
RECEIVED PT FROM ED NURSE. PT A/OX4, FOLLOWS COMMANDS, SPEECH CLEAR. DENIES PAIN AT THIS TIME. DENIES CHEST PAIN, PRESSURE, AND PALPITATIONS. ON 4L N/C, SPO2 97%. BREATHING LABORED AT 24. CHEST RISE EVEN. PULSES PALPABLE TO BUE/BLE. +2 EDEMA NOTED TO BLE. BS ACTIVE X4 QUADS. ABD ROUND AND NONTENDER. GENERALIZED WEAKNESS NOTED. SKIN CLEAR. IV RAC, SL. ALL NEEDS MET. BED IN LOW POSITION. CALL LIGHT WITHIN REACH. WILL CONTINUE TO MONITOR.
--- NOTE | 2020-04-29 03:27 | NUR ---
PT HR SUSTAINING 120'S. DENIES CHEST PAIN, PRESSURE, AND PALPITATIONS. ON 4L N/C, SPO2 97%. BP 143/75. PAGED DR. FLORES AT 0575 TO NOTIFY HIM OF HR AND POTASSIUM 5.4. WILL WAIT FOR CALL BACK.
--- NOTE | 2020-04-29 04:29 | NUR ---
PAGED DR. FLORES AGAIN AT [phone]. WILL WAIT FOR CALL BACK.
[2020-04-29 04:35] VITALS: BP 143/67
--- NOTE | 2020-04-29 04:57 | NUR ---
PT C/O CHEST PAIN. PAGED DR. FLORES FOR THE THIRD TIME DIRECTLY. SPOKE WITH DR. FLORES AND NOTIFIED HIM THAT THERE WAS NO EKG DONE ON ADMISSION AND HR SUSTAINING AT 127. ORDERS RECEIVED. WILL FOLLOW ORDERS.
--- NOTE | 2020-04-29 05:10 | NUR ---
CALLED SUNDE[facility] FROM PHARMACY TO VERIFY NEW ORDERS.
--- NOTE | 2020-04-29 05:17 | NUR ---
PT STATES SHE DOES NOT HAVE CHEST PAIN ANYMORE. DENIES ANY PAIN. ON 4L N/C, SPO2 98%.
--- NOTE | 2020-04-29 06:45 | NUR ---
INSERTED F/C, STERILE TECHNIQUE MAINTAINED. PT TOLERATED WELL.
[2020-04-29 07:18] VITALS: BP 138/87
--- NOTE | 2020-04-29 07:30 | NUR ---
RECEIVED PATIENT FROM SIGNAL OPERATOR LINGUIST RN. PATIENT A/OX4 CALM AND COOPERATIVE. ON 4L NC, BREATHING REG AND UNLABORED. NO SOB NOTED. ON TELE #2. NO CHEST PAIN NOTED. IV TO RAC 20G C/D/I AND PATENT, SALINE LOCKED. PATIENT STATED SHE DID NOT WANT COLACE THIS MORNING. COMFORT AND SAFETY MEASURES IN PLACE. CALL LIGHT WITHIN REACH. WILL CONTINUE WITH PLAN OF CARE.
--- NOTE | 2020-04-29 07:35 | NUR ---
PT CALM AND COMFORTABLE IN BED. DENIES CHEST PAIN, PRESSURE, AND PALPITATIONS AT THIS TIME. ON 4L N/C, NO RESPIRATORY DISTRESS AT THIS TIME. F/C IN PLACE AND DRAINING. IV RAC, SL, FLUSHES WELL. ALL NEEDS MET. BED IN LOW POSITION. CALL LIGHT WITHIN REACH. GAVE REPORT TO AND ENDORSED ALL CARE TO AM NURSE.
[2020-04-29 07:54] LABS: PLATELET COUNT 198 x10^3mcL (179-408)
[2020-04-29 08:17] LABS: CALCIUM 8.6 mg/dL (8.5-10.1); CARBON DIOXIDE 30.7 mmol/L (21-32); CHOLESTEROL/HDL RATIO 3.1; CREATININE SERUM 1.9 mg/dL (0.6-1.0); MAGNESIUM 2.2 mg/dL (1.8-2.4); POTASSIUM SERUM 5.1 mmol/L (3.5-5.1)
[2020-04-29 08:26] VITALS: BP 105/64
[2020-04-29 08:28] LABS: BASOPHIL % 0 % (0.2-1.3); RED CELL DISTRIBUTION WIDTH 17.4 % (12.3-17.7)
--- NOTE | 2020-04-29 11:20 | NUR ---
IV TO RAC 20G LEAKING. IV DC WITH CATHETER INTACT. IV TO L HAND 22G STARTED. C/D/I AND PATENT, SALINE LOCKED. PATIENT TOLERATED WELL. CALL LIGHT WITHIN REACH. WILL CONTINUE TO MONITOR PATIENT.
[2020-04-29 12:13] VITALS: BP 134/84
[2020-04-29 16:53] VITALS: BP 123/75
--- NOTE | 2020-04-29 18:55 | NUR ---
PATIENT RESTING IN BED. A/OX4 CALM AND COOPERATIVE. ASKED FOR A DIET MATTHEW. ON THE PHONE WITH FAMILY. NO C/O PAIN OR SOB NOTED AT THIS TIME. ON L NC. BREATHING REG AND UNLABORED. ON TELE #2, A-FIB. DR PAREKH AWARE OF HEART RHYTHM. HR 132. DENIES ANY CHEST PAIN. RAMÍREZ C/D/I AND DRAINING CLEAR, YELLOW URINE. IV TO L HAND 22G C/D/I AND PATENT, SALINE LOCKED. COMFORT AND SAFETY MEASURES IN PLACE. CALL LIGHT WITHIN REACH. WILL ENDORSE TO SUPERVISOR FISHING RN.
[2020-04-29 20:45] VITALS: BP 117/65
--- NOTE | 2020-04-29 23:04 | NUR ---
PT ALERT AND ORIENTED X4, ABLE TO MAKE NEEDS KNOWM, HAS NO C/O PAIN AT THIS TIME, CONTINUES AFIB ON TELE, LUNG SOUNDS CLEAR, BOWEL SOUNDS ACTIVE IN ALL 4 QUADS, RAMÍREZ INTACT AND PATENT, DRAINING STRAW COLORED URINE, GENERALIZED WEAKNESS NOTED, SKIN WARM DRY AND INTACT, IV IN LEFT HAND INTACT AND PATENT, NO C/O OF CHEST PAIN, REMAINS STABLE, WILL CONTINUE TO OBSERVE.
--- NOTE | 2020-04-30 00:04 | NUR ---
PT RESTING, NO C/O PAIN, NO SIGNS OF DISTRESS NOTED, SAFETY MAINTAINED, WILL CONTINUE TO OBSERVE.
--- NOTE | 2020-04-30 05:09 | NUR ---
PT UNEVENTFUL THIS SHIFT, NO C/O PAIN, NO SIGNS OF DISTRESS NOTED, REMAINS STABLE, SAFETY MAINTAINED, WILL CONTINUE TO OBSERVE.
[2020-04-30 05:48] VITALS: BP 138/64
[2020-04-30 06:22] LABS: BASOPHIL % 0.1 % (0.2-1.3); PLATELET COUNT 194 x10^3mcL (179-408)
[2020-04-30 07:27] LABS: RED CELL DISTRIBUTION WIDTH 17.5 % (12.3-17.7)
--- NOTE | 2020-04-30 07:30 | NUR ---
RECEIVED PATIENT FROM FINANCIAL ANALYST ACCOUNTANT RN. PATIENT A/OX4 DENIES ANY YOUNG. ON 4L NC. NO C/O PAIN OR SOB NOTED AT THIS TIME. ON TELE #2 HR 133. NO CHEST PAIN NOTED. IV TO L HAND 22G C/D/I AND PATENT, SALINE LOCKED. COMFORT AND SAFETY MEASURES IN PLACE. CALL LIGHT WITHIN REACH. WILL CONTINUE WITH PLAN OF CARE.
[2020-04-30 07:31] LABS: MAGNESIUM 2.4 mg/dL (1.8-2.4)
[2020-04-30 08:02] LABS: CARBON DIOXIDE 33.9 mmol/L (21-32); POTASSIUM SERUM 5.3 mmol/L (3.5-5.1)
[2020-04-30 08:21] VITALS: BP 120/73
[2020-04-30 12:18] VITALS: BP 136/79
[2020-04-30 16:32] VITALS: BP 113/68
--- NOTE | 2020-04-30 19:00 | NUR ---
PATIENT A/OX4 CALM AND COOPERATIVE. ON 4L NC BREATHING REG AND UNLABORED. NO C/O PAIN OR SOB NOTED. ON TELE #2, ST, HR 133. LOPRESSOR GIVEN PRN PER MAR. IV TO L HAND 22G C/D/I AND PATENT, SALINE LOCKED. COMFORT AND SAFETY MEASURES IN PLACE. CALL LIGHT WITHIN REACH. WILL ENDORSE TO BURRER MACHINE RN.
[2020-04-30 20:10] VITALS: BP 102/67
--- NOTE | 2020-04-30 22:31 | NUR ---
PT ALERT AND ORIENTED X4, LUNG SOUNDS CLEAR, BOWEL SOUNDS ACTIVE, RAMÍREZ INTACT AND PATENT, GENERALIZED WEAKNESS NOTED, SKIN WARM DRY AND INTACT, NO C/O PAIN, NO SIGNS OF DISTRESS NOTED, IV LEFT HAND ,INTACT AND PATENT, CONTINUES ON A HEART HEALTHY DIET, WHICH SHE TOLERATES WELL, PT REMAINS, STABLE, SAFETY MAINTAINED, WILL CONTINUE TO OBSERVE.
--- NOTE | 2020-05-01 05:19 | NUR ---
PT UNEVENTFUL THIS SHIFT, NO C/O PAIN, NO SIGNS OF DISTRESS NOTED NO C/O CHEST PAIN, REMAINS STABLE, SAFTEY MAINTAINED, WILL CONTINUE TO OBSERVE.
[2020-05-01 05:57] VITALS: BP 116/73
--- NOTE | 2020-05-01 07:40 | NUR ---
RECEIVED PATIENT FROM BIOLOGY TUTOR RN. PATIENT A/OX4. ON 4L NC. NO C/O PAIN OR SOB AT THIS TIME. PATIENT ON TELE #2 HR 128. IV TO L HAND 22G C/D/I AND PATENT, SALINE LOCKED. COMFORT AND SAFETY MEASURES IN PLACE. CALL LIGHT WITHIN REACH. WILL CONTINUE WITH PLAN OF CARE.
[2020-05-01 08:26] VITALS: BP 141/85
[2020-05-01 12:07] VITALS: BP 146/99
[2020-05-01 16:00] VITALS: BP 106/59
[2020-05-01 18:26] LABS: CALCIUM 8.7 mg/dL (8.5-10.1); CARBON DIOXIDE 35.1 mmol/L (21-32); MAGNESIUM 2.4 mg/dL (1.8-2.4); POTASSIUM SERUM 4.9 mmol/L (3.5-5.1)
--- NOTE | 2020-05-01 18:36 | NUR ---
PATIENT A/OX4 CALM AND COOPERATIVE. ON 4L NC. NO C/O PAIN OR RESPIRATORY DISTRESS AT THIS TIME. ON TELE #2, NSR, HR 128. IV TO L HAND 22G C/D/I AND PATENT, SALINE LOCKED. COMFORT AND SAFETY MEASURES IN PLACE. CALL LIGHT WITHIN REACH. WILL ENDORSE TO GETTER OPERATOR RN.
[2020-05-01 19:49] VITALS: BP 133/78
--- NOTE | 2020-05-01 22:15 | NUR ---
PT ALERT AND ORIENTED X4, TOLERATES MEDS WELL, LUNG SOUNDS CLEAR, GENERALIZED WEAKNESS NOTED, BOWEL SOUNDS ACTIVE, RAMÍREZ PATENT AND INTACT, DRAINING STRAW COLORED URINE, SKIN WARM DRY AND INTACT, IV TO LEFT HAND INTACT AND PATENT, CONTINUE SR ON TELE, NO HYPO/HYPERGLYCEMIC EPISODES NOTED, CONTINUE ON CCHO DIET, PT REMAINS STABLE, SAFETY MAINTAINED, WILL CODNTINUE TO OBSERVE.
--- NOTE | 2020-05-02 00:53 | NUR ---
PT ALERT, NO C/O PAIN, NO SIGNS OF DISTRESS NOTED, REMAINS STABLE, WILL CONTINUE TO OBSERVE.
--- NOTE | 2020-05-02 05:13 | NUR ---
PT UNEVENTFUL THIS SHIFT, NO C/O PAIN, NO SIGNS OF DISTRESS NOTED,SAFETY MAINTAINED, WILL CONTINUE TO OBSERVE.
[2020-05-02 06:45] VITALS: BP 145/101
[2020-05-02 06:49] LABS: BASOPHIL % 0.1 % (0.2-1.3); PLATELET COUNT 198 x10^3mcL (179-408)
--- NOTE | 2020-05-02 07:30 | NUR ---
RECIEVED PATIENT FROM NIGHT RN. PATIENT IN BED WATCHING TV. NO SIGNS OF DISTRESS NOTED. DENIES SOB. DENIES CHEST PAIN/PRESSURE. CALL LIGHT WITHIN REACH, BED LOCKED AND IN LOWEST POSITION.
[2020-05-02 07:38] LABS: CALCIUM 8.7 mg/dL (8.5-10.1); CREATININE SERUM 2.4 mg/dL (0.6-1.0); MAGNESIUM 2.4 mg/dL (1.8-2.4); POTASSIUM SERUM 5.5 mmol/L (3.5-5.1)
--- NOTE | 2020-05-02 07:40 | NUR ---
RECEIVED PT FROM PRODUCE DEPARTMENT MANAGER. ASSESSED AND WILL DOCUMENT. STABLE. DENIES CHEST PAIN. SAFTEY PRECAUTIONS ARE INN PLACE. WILL MONITOR.
--- NOTE | 2020-05-02 08:00 | NUR ---
ASSESSMENT DONE. PATIENT AWAKE A/O X4. DENIES SOB, CHEST PAIN/PRESSURE. NO ABD PAIN. NO SIGNS OF DISTRESS NOTED. CALL LIGHT WITHIN REACH, BED LOCKED AND IN LOWEST POSITION. WILL CONTINUE TO MONITOR.
[2020-05-02 08:22] VITALS: BP 128/75
--- NOTE | 2020-05-02 11:00 | NUR ---
INFORMED ABOUT K=5.5, URC RESULT. ALSO HE IS AWARE ABOUT ALLOTHER ABNROMAL LABS, BUN/CREAT. STABLE. PT IS ON ROCEPHIN IV.
[2020-05-02 11:44] VITALS: BP 117/78
[2020-05-02 11:46] LABS: PLATELET COUNT 185 x10^3mcL (130-400); RED CELL DISTRIBUTION WIDTH 18.1 % (11.5-14.5)
[2020-05-02 11:47] LABS: BASOPHIL % 0 % (0-2)
--- NOTE | 2020-05-02 12:30 | NUR ---
PATIENT AWAKE WATCHING TV. NO SIGNS OF DISTRESS. DENIES ANY PAIN. DENIES SOB, CHEST PAIN. SAFETY PRECAUTIONS IN PLACE CALL LIGHT WITHIN REACH, BED LOCKED AND IN LOWEST POSITION.
--- NOTE | 2020-05-02 12:30 | NUR ---
NURSING CO-SIGN THE DOCUMENTATION ENTERED BY THE IP HAS BEEN REVIEWED. REVIEWED/CO-SIGNED BY: Molly Miramontes DOCUMENTATION DONE BY: ELLY PRIETO.
[2020-05-02 17:20] VITALS: BP 122/74
--- NOTE | 2020-05-02 19:19 | NUR ---
PATIENT ENDORSED TO NIGHT RN. PATIENT DENIES SOB, CHEST PAIN/PRESSURE. NO SIGNS OF DISTRESS AT THIS TIME. CALL LIGHT WITHIN REACH, BED LOCKED AND IN LOWEST POSITION.
[2020-05-02 20:31] VITALS: BP 134/61
--- NOTE | 2020-05-03 00:11 | NUR ---
PT ALERT AND ORIENTED X4, LUNG SOUNDS CLEAR, BOWEL SOUNDS ACTIVE, CONTINENT OF BOWEL, RAMÍREZ INTACT AND PATENT, GENERALIZED WEAKNESS NOTED, SKIN WARM DRY AND INTACT, IV TO L HAND INTACT AND PATENT, 2+EDEMA BLE, NO C/O CHEST PAIN, SAFETY MAINTAINED WILL CONTINUE TO OBSERVE.
[2020-05-03 05:53] VITALS: BP 111/80
--- NOTE | 2020-05-03 06:37 | NUR ---
PT UNEVENTFUL THIS SHIFT, NO C/O PAIN, NO SIGNS OF DISTRESS NOTED, REMAINS STABLE, WILL CONTINUE TO OBSERVE.
[2020-05-03 07:34] LABS: BASOPHIL % 0.1 % (0.2-1.3); PLATELET COUNT 192 x10^3mcL (179-408)
--- NOTE | 2020-05-03 07:35 | NUR ---
RECEIVED PT FROM HOTEL FRONT DESK AGENT. ASSESSED AND WILL DOCUMENT. PT IS SLEEPING, EASILY AROUSABLE AND VERBALLY RESPONDING. DENIES ANY PAIN. STABLE. NO SOB NOTED ON 4L N/C, SPO2 95%. PT SAID SHE USE 4L N/C CONTINIOUSLY AT HOME ALSO FOR HER CHF. V/S STABLE. NO DISTRESS NOTED. SAFTEY PRECAUTIONS ARE IN PLACE. WILL MONITOR.
[2020-05-03 07:43] LABS: CALCIUM 9.4 mg/dL (8.5-10.1); CARBON DIOXIDE 36.6 mmol/L (21-32); CREATININE SERUM 2.4 mg/dL (0.6-1.0); MAGNESIUM 2.6 mg/dL (1.8-2.4); POTASSIUM SERUM 4.7 mmol/L (3.5-5.1)
[2020-05-03 07:58] LABS: RED CELL DISTRIBUTION WIDTH 17.7 % (12.3-17.7)
[2020-05-03 09:19] VITALS: BP 105/80
--- NOTE | 2020-05-03 12:00 | NUR ---
INFORMED ABOUT PT HAVING LOW URINE OUT PUT. HE SAID HE WILL DISCUSS WITH PT RENAL DOCTOR ABOUT THAT.
[2020-05-03 12:20] VITALS: BP 135/79
--- NOTE | 2020-05-03 13:00 | NUR ---
PT RESTING IN BED COMFORTABLY. STABLE. EATING WELL.
--- NOTE | 2020-05-03 14:49 | NUR ---
PHYSICAL THERAPY DAILY NOTES CO-SIGN All documentation done by the Reweaver for 05/03/20 has been reviewed. I agree with the documentation. Reviewed/Co-Signed by: Diamond Salas PT Documentation Done by:GLORIA KRISHNAMURTHY PTA
[2020-05-03 15:52] VITALS: BP 131/83
--- NOTE | 2020-05-03 17:22 | NUR ---
PT HR IS FLUTUATING FROM 110 TO 120'S METORPROLOL 5MG IV GIVE ORDERED. BP IS 130/72. STABLE. DENIES CHEST PAIN. RHYTHM IS ST VS AFIB. WILL MONITOR.
--- NOTE | 2020-05-03 19:15 | NUR ---
PT RESTING IN BED COMFORTABLY. DENIES ANY PAIN. HR IS IN 80'S THIS TIME. STABLE. GAVE REPORT TO CUSTOMER SERVICER NURSE.
--- NOTE | 2020-05-03 19:45 | NUR ---
RECEIVED REPORT FROM DAY SHIFT RN. PT AA&O X4. NO C/O CHEST PAIN/PRESSURE. +1 EDEMA TO BLE. NO SOB ON O2 4L VIA NC. NO C/O N/V/ABD PAIN. RAMÍREZ CATHETER IN PLACE DRAINING YELLOW URINE BY GRAVITY. COMMODE AT [facility]. IV SALINE LOCKED TO LEFT HAND. SAFETY MEASURES IN PLACE. BED IN LOWEST POSITION. SIDE RAILS UP X2. INSTRUCTED TO CALL FOR ASSISTANCE. CALL LIGHT WITHIN REACH.
[2020-05-03 20:22] VITALS: BP 108/57
[2020-05-04 05:17] VITALS: BP 125/73
[2020-05-04 06:57] LABS: CALCIUM 8.8 mg/dL (8.5-10.1); CARBON DIOXIDE 36.4 mmol/L (21-32); CREATININE SERUM 2.6 mg/dL (0.6-1.0); POTASSIUM SERUM 5.1 mmol/L (3.5-5.1)
--- NOTE | 2020-05-04 07:25 | NUR ---
PT RESTED IN INTERVALS THROUGHOUT SHIFT. NO SOB ON O2 4L VIA NC. NO C/O CHEST PAIN/PRESSURE. NO N/V/ABD PAIN. IV SALINE LOCKED TO LEFT HAND, PATENT AND INTACT. RAMÍREZ CARE DONE. SAFETY MEASURES MAINTAINED. CALL LIGHT WITHIN REACH. ENDORSED CARE TO DAY SHIFT RN.
--- NOTE | 2020-05-04 07:30 | NUR ---
RECEIVES PATIENT FROM TALK SHOW HOST NURSE. PT IS SLEEPING IN BED. TELE#2. BREATHING E/U, NO ACUTE RESP DISTRESS NOTED, ON O2 4L NC. RAMÍREZ WITH STATLOCK IN PLACE. SKIN CDI, DENIES PAIN/DISCOMFORT. IV TO LH HL PATENT/INTACT. CALL LIGHT WITHIN REACH, BED AT LOWEST POSITION. WILL MONITOR PATIENT CLOSELY.
[2020-05-04 07:48] VITALS: BP 121/76
[2020-05-04 11:32] VITALS: BP 134/94
--- NOTE | 2020-05-04 13:38 | NUR ---
PT SIT ON CHAIR AND EATS LUNCH. ALERT AND ORIENTED. CALM AND COOPERATIVE. DENIES PAIN/DISCOMFORT. HL PATENT/INACT.CALL LIGHT WITHIN REACH, BED AT LOWEST POSITION
--- NOTE | 2020-05-04 14:50 | NUR ---
PHYSICAL THERAPY DAILY NOTES CO-SIGN All documentation done by the Cargo Agent for 05/04/20 has been reviewed. I agree with the documentation. Reviewed/Co-Signed by: Diamond Salas PT Documentation Done by:GLORIA KRISHNAMURTHY PTA
--- NOTE | 2020-05-04 15:56 | NUR ---
Initial Nutrition Assessment: MargaritaB AIDA LOMAS 65F Dx: CHF exacerbation PMHx: CHF, HTN, Pleural effusion, Anxiety, Depression, Fibromyalgia, COVID PNA, Chronic reanl failure, DM, Hypothyroidism PSHx: Thoracentesis Labs: (05/04) GFR 20ml/min, (05/03) HCT 35L, BUN 50H, Cr 2.6H, Mg 2.6H, (04/29) A1C 7.7H, Triglyceride 156H, (04/28) AST 12L, Alk ph 141H, albumin 3L Meds: Rocephin, Aspirin, Cozaar, Coreg, venlafaxine, Heparin, Lasix, Colace, Lamictal, Synthroid, Prilosec, Remeron, klonopin, Lipitor, Lopressor, Lantus, Humulin, Zaroxolyn, Coreg Diet: Renal diet PO intake since admission: (04/29) B: 75%, L: 75%, D: 25%, (04/30) B: 25%, L: 25%, (05/01) B: 35%, D: 75%, (05/02) B: 100%, L: 100%, (05/03) B: 100%, D: 100%, (05/04) B: 80% pt's PO intake up trending Ht: 170.18cm/67in Wt: 117.934kg/259.5lbs BMI: 40.7kg/m2 Bed scale: pt not sitting in bed IBW: 61.36kg/135lbs %IBW: 192.2% Adjusted BW: 67kg UBW: 222-224lbs per pt Age: 65 Food Allergies: NFKA per pt Edema: +1 edema noted to BLE Last BM: 05/03 Skin: skin intact Nir: 18 Per H and P (04/29), Aida Lomas is a 65-year-old Female with PMHx CHF, HTN, DM, fibromyalgia brought in by ambulance for evaluation of sudden onset of shortness of breath earlier this evening while patient was watching TV. She reports receiving PT earlier today and feeling fine during appointment. Patient has history of COVID-27 February 2020. Also, she had pleural effusion requiring thoracentesis. Her last 2D echocardiogram from March 2020 revealed EF of 45%. Patient has been initiated on IV Lasix and at this time she is being further admitted to hospital for management. Pt was admitted with dx: acute on chronic systolic CHF, T2DM, HTN, Morbid Obesity, CKD III, Bilateral pleural effusion RD Note (05/04/2020) Per progress note (05/03), pt remains on 4L NC but ambulating well. Pt was seen sitting on a chair next to her bed, and not able to obtain bed scale weight. Pt reported fair appetite, but she didn't like a lot of food; otherwise, pt denied GI distress or chewing/swallowing difficulty. Additionally, pt reported recent weight gain, and part of weight gain might had been caused by CHF associated water retention. At home, pt avoid having a lot of vegetable and pt takes vitamin D prescribed by PCP. Pt used to walk but her physical activity level had decreased d/t her bad back. Problem with: N/V/D/C: none per pt Problems with: Chewing: Swallowing: none per pt Current appetite: fair per pt Recent wt change: weight gain of 35lbs %wt change: 15% weight gain Height: 5'7" Vitamin/Supplement use: vitamin D per PCP Special diet at home: regular diet, and pt doesn't like a lot of vegetable Physical activity: low physical activity level Nutrition education given (specify specific nutrition education and handout given): RD provided written education "Carbohydrate Counting for People with Diabetes", "Using Nutrition Label: Carbohydrate", "Chronic Kidney Disease Stage 3-5 Nutrition Therapy", and "Cardiac-TLC Nutrition Therapy" from [facility] provided. Pointed out substitutions and healthier alternatives pt can eat based on pt's daily diet. Encouraged pt to avoid high processed food with high sodium content. Briefly explain education before pt needs to receive X-ray. Food-drug interactions? Education given? n/a Estimated Nutritional Needs Based on adjusted body weight (67kg) Energy: 4623-8956 kcal/day (25-30 kcal/kg for maintenance) Protein: 40-53 g/day (0.6-0.8 g/kg for GFR < 50ml/min and not on HD) Fluid: 3380-4050 mL/day (1 mL/kcal) Nutrition Diagnosis: 1. Undesired food choices r/t limited food preference a/e/b pt reported that she avoids eating a lot of vegetables. 2. Obesity r/t imbalance intake and output a/e/b pt reported decreased physical activity level. 3. Altered nutrition related labs r/t renal and endocrine dysfunction a/e/b elevated BUN 50H, Cr 2.6H, GFR 20ml/hr, and A1C 7.7%. Intervention 1. Continue with renal diet as tolerate Monitor/Evaluate Goal: PO intake at least 75% of estimated needs Monitor: PO intake, Labs, GI function F/U in 3-5 days as moderate risk
--- NOTE | 2020-05-04 15:56 | NUR ---
1. Continue with renal diet as tolerate
[2020-05-04 16:13] VITALS: BP 109/62
[2020-05-04] MEDS ORDERED: LOSARTAN POTASS50 M1 PO (16:59)
[2020-05-04 17:00] VITALS: BP 109/62
--- NOTE | 2020-05-04 18:48 | NUR ---
PT DC'D BACK TO HOME IN NO RESP DISTRESS, AWAKE, ALERT, AND ORIENTED. VS STABLE. DC INSTRUCTIONS REVIEWED WITH PATIENT. SHE VERBALIZED UNDERSTANDING. RX TO PHARMACY. HL REMOVED, RAMÍREZ CATH REMOVED SITS/CATH INTACT. NO C/O PAIN/DISCOMFORT AT TIME OF DC. PT BELONGING TAKEN HOME.
== END 2020-05-04 18:44 | disposition home health service (06) | DRG 291 ==
LOC: ED 18:20 → DU 22:00
PROVIDERS: Emergency Medicine; Internal Medicine Nephrology; ADMIT Hospitalist; ATTEND Hospitalist
DX: I13.0 Hypertensive heart and chronic kidney disease with heart failure and stage 1 through stage 4 chronic kidney disease, or unspecified chronic kidney disease (principal); I50.23 Acute on chronic systolic (congestive) heart failure; Z68.41 Body mass index [BMI] 40.0-44.9, adult; J90 Pleural effusion, not elsewhere classified; N17.9 Acute kidney failure, unspecified; E03.9 Hypothyroidism, unspecified; K21.9 Gastro-esophageal reflux disease without esophagitis; M79.7 Fibromyalgia; E66.01 Morbid (severe) obesity due to excess calories; E11.65 Type 2 diabetes mellitus with hyperglycemia; E78.5 Hyperlipidemia, unspecified; N18.2 Chronic kidney disease, stage 2 (mild); I34.0 Nonrheumatic mitral (valve) insufficiency; E11.22 Type 2 diabetes mellitus with diabetic chronic kidney disease; F41.9 Anxiety disorder, unspecified; Z20.822 Contact with and (suspected) exposure to COVID-19; E78.00 Pure hypercholesterolemia, unspecified; E66.9 Obesity, unspecified; F32.9 Major depressive disorder, single episode, unspecified; Z90.710 Acquired absence of both cervix and uterus; Z98.51 Tubal ligation status; Z86.16 Personal history of COVID-19; Z79.82 Long term (current) use of aspirin
CPT/HCPCS: 82962; 83880; 85378; 97110-GP; 97116-GP; 97530-GP; G0378; J0696; J1644; J1815; J1940; J3490; J7030

== ENCOUNTER 2020-05-15 00:57 | Inpatient (IN) | payer OTHER ==
[2020-05-15] VITALS (17 sets, daily range): BP systolic 106–139; BP diastolic 55–80; Ht 165.1 cm; Wt 120.8 kg
[~2020-05-15] VITALS: Ht 165.1 cm; Wt 120.8 kg
[~2020-05-15 00:57] MED LIST changes: +ASPIRIN CHILDRE81 MG; +DERMACINRX5000 UNIT; +EFFEXOR-XR75 MG PO; +LOSARTAN POTASS50 M1 PO; +TRAZODONE150 M1; +ZESTRIL20 MG PO
[2020-05-15 01:39] LABS: BASOPHIL % 0.1 % (0.2-1.3); PLATELET COUNT 364 x10^3mcL (179-408)
[2020-05-15 01:48] LABS: RED CELL DISTRIBUTION WIDTH 18.2 % (12.3-17.7)
[2020-05-15 02:56] LABS: BILIRUBIN TOTAL 0.2 mg/dL (0.20-1.00); CALCIUM 8.4 mg/dL (8.5-10.1); CARBON DIOXIDE 30.6 mmol/L (21-32); TOTAL PROTEIN, SERUM 6.7 g/dL (6.4-8.2)
[2020-05-15 03:02] LABS: ALBUMIN 3.3 g/dL (3.4-5.0); POTASSIUM SERUM 5.8 mmol/L (3.5-5.1)
[2020-05-15 03:03] LABS: CREATININE SERUM 4.6 mg/dL (0.6-1.0)
[2020-05-15 07:11] LABS: UA SPECIFIC GRAVITY >=1.030 (1.005-1.035); microscopic required? YES; urine erythrocyte 3+ (NEGATIVE)
[2020-05-15 11:28] LABS: CARBON DIOXIDE 27.9 mmol/L (21-32)
[2020-05-15 11:29] LABS: CREATININE SERUM 4.2 mg/dL (0.6-1.0); POTASSIUM SERUM 5.9 mmol/L (3.5-5.1)
[2020-05-15 17:09] LABS: CALCIUM 8.7 mg/dL (8.5-10.1); CARBON DIOXIDE 29.5 mmol/L (21-32); POTASSIUM SERUM 5.1 mmol/L (3.5-5.1)
[2020-05-16] VITALS (12 sets, daily range): BP systolic 92–135; BP diastolic 47–75
[2020-05-16 05:57] LABS: BILIRUBIN TOTAL 0.27 mg/dL (0.20-1.00); CALCIUM 7.8 mg/dL (8.5-10.1); CARBON DIOXIDE 28.3 mmol/L (21-32); CREATININE SERUM 3.9 mg/dL (0.6-1.0); MAGNESIUM 2.7 mg/dL (1.8-2.4); POTASSIUM SERUM 4.4 mmol/L (3.5-5.1)
[2020-05-16 06:00] LABS: ALBUMIN 2.7 g/dL (3.4-5.0); TOTAL PROTEIN, SERUM 5.4 g/dL (6.4-8.2)
[2020-05-16 06:20] LABS: BASOPHIL % 0.1 % (0.2-1.3); PLATELET COUNT 286 x10^3mcL (179-408)
[2020-05-16 06:22] LABS: RED CELL DISTRIBUTION WIDTH 17.9 % (12.3-17.7)
[2020-05-17 03:43] VITALS: BP 107/57
[2020-05-17 04:52] LABS: BASOPHIL % 0.2 % (0.2-1.3); PLATELET COUNT 242 x10^3mcL (179-408)
[2020-05-17 04:59] LABS: RED CELL DISTRIBUTION WIDTH 18.7 % (12.3-17.7)
[2020-05-17 05:22] LABS: BILIRUBIN TOTAL 0.27 mg/dL (0.20-1.00); CALCIUM 8.4 mg/dL (8.5-10.1); CARBON DIOXIDE 33.6 mmol/L (21-32); CREATININE SERUM 3.2 mg/dL (0.6-1.0); MAGNESIUM 2.5 mg/dL (1.8-2.4); POTASSIUM SERUM 3.4 mmol/L (3.5-5.1)
[2020-05-17 05:33] LABS: ALBUMIN 2.5 g/dL (3.4-5.0); TOTAL PROTEIN, SERUM 5.5 g/dL (6.4-8.2)
[2020-05-17 08:00] VITALS: BP 140/68
[2020-05-17 14:17] VITALS: BP 120/61
[2020-05-17 21:37] VITALS: BP 136/75
[2020-05-18 06:08] LABS: BILIRUBIN TOTAL 0.2 mg/dL (0.20-1.00); CALCIUM 8.7 mg/dL (8.5-10.1); CARBON DIOXIDE 35.2 mmol/L (21-32); CREATININE SERUM 2.2 mg/dL (0.6-1.0); MAGNESIUM 2.3 mg/dL (1.8-2.4); POTASSIUM SERUM 3.8 mmol/L (3.5-5.1)
[2020-05-18 06:12] LABS: ALBUMIN 2.6 g/dL (3.4-5.0)
[2020-05-18 06:20] VITALS: BP 129/63
[2020-05-18 06:24] LABS: PLATELET COUNT 288 x10^3mcL (179-408)
[2020-05-18 06:25] LABS: BASOPHIL % 0 % (0.2-1.3); RED CELL DISTRIBUTION WIDTH 18.2 % (12.3-17.7)
[2020-05-18 08:22] VITALS: BP 101/77
[2020-05-18] MEDS ORDERED: OSELTAMIVIR PHO30 MG PO (11:25)
[2020-05-18] MEDS ORDERED: COR3 PO (11:26)
[2020-05-18 11:59] VITALS: BP 115/64
[2020-05-18 12:36] VITALS: BP 115/64
[2020-05-18 16:31] VITALS: BP 142/75
[2020-05-18 21:15] VITALS: BP 133/71
[2020-05-19 06:13] VITALS: BP 106/57
[2020-05-19 06:30] LABS: BASOPHIL % 0.2 % (0.2-1.3); PLATELET COUNT 231 x10^3mcL (179-408)
[2020-05-19 07:14] LABS: RED CELL DISTRIBUTION WIDTH 18.2 % (12.3-17.7)
[2020-05-19 07:17] LABS: BILIRUBIN TOTAL 0.2 mg/dL (0.20-1.00); CALCIUM 8.3 mg/dL (8.5-10.1); CARBON DIOXIDE 36.5 mmol/L (21-32); CREATININE SERUM 1.9 mg/dL (0.6-1.0); MAGNESIUM 2.2 mg/dL (1.8-2.4); POTASSIUM SERUM 3.8 mmol/L (3.5-5.1)
[2020-05-19 07:20] VITALS: BP 131/74
[2020-05-19 07:26] LABS: ALBUMIN 2.5 g/dL (3.4-5.0); TOTAL PROTEIN, SERUM 5.7 g/dL (6.4-8.2)
[2020-05-19 12:29] VITALS: BP 119/71
[2020-05-19 13:26] VITALS: BP 119/71
== END 2020-05-19 15:20 | DRG 208 ==
LOC: ED 00:57 → IC 03:50 → DU 05-17 12:23
PROVIDERS: Emergency Medicine; Internal Medicine; ADMIT Internal Medicine; ATTEND Internal Medicine
PROC: 5A1945Z Respiratory Ventilation, 24-96 Consecutive Hours (ICD-10-PCS; principal; 2020-05-15)
PROC: 0BH17EZ Insertion of Endotracheal Airway into Trachea, Via Natural or Artificial Opening (ICD-10-PCS; 2020-05-15)
DX: J69.0 Pneumonitis due to inhalation of food and vomit (principal); J96.01 Acute respiratory failure with hypoxia; J96.02 Acute respiratory failure with hypercapnia; I50.43 Acute on chronic combined systolic (congestive) and diastolic (congestive) heart failure; N17.0 Acute kidney failure with tubular necrosis; I46.9 Cardiac arrest, cause unspecified; I13.0 Hypertensive heart and chronic kidney disease with heart failure and stage 1 through stage 4 chronic kidney disease, or unspecified chronic kidney disease; N18.4 Chronic kidney disease, stage 4 (severe); Z20.822 Contact with and (suspected) exposure to COVID-19; E03.9 Hypothyroidism, unspecified; F32.9 Major depressive disorder, single episode, unspecified; F41.9 Anxiety disorder, unspecified; Z90.710 Acquired absence of both cervix and uterus; M79.7 Fibromyalgia; E87.5 Hyperkalemia; N18.9 Chronic kidney disease, unspecified; E11.22 Type 2 diabetes mellitus with diabetic chronic kidney disease; E66.9 Obesity, unspecified; Z71.3 Dietary counseling and surveillance; Z68.39 Body mass index [BMI] 39.0-39.9, adult
CPT/HCPCS: 36600; 82962; 83880; 87804; 97110-GP; 97116-GP; 97530-GP; A4628; C9113; G0378; J0456; J0610; J0696; J1100; J1644; J1815; J1940; J2060; J2405; J2543; J2704; J3490; J7030; J7040; U0003